=== PATIENT | male | born 1975 | race Caucasian/White ===

== ENCOUNTER 2017-03-14 15:38 | Emergency (ER) | payer OTHER ==
[~2017-03-14] VITALS: Ht 162.6 cm; Wt 72.7 kg
[2017-03-14 17:57] VITALS: BP 121/71
== END 2017-03-14 18:14 | disposition home or self-care (01) ==
LOC: EMS 15:39
DX: F32.9 Major depressive disorder, single episode, unspecified (principal); F17.210 Nicotine dependence, cigarettes, uncomplicated
CPT/HCPCS: 99284

== ENCOUNTER 2017-03-20 09:13 | Inpatient (IN) | payer MEDICAID, OTHER ==
[~2017-03-20] VITALS: Ht 165.1 cm; Wt 69.9 kg
[2017-03-20 10:06] LABS: BASOPHILS # (AUTO) 0.03 K/uL (0.00-0.20); BASOPHILS % (AUTO) 0.4 % (0.0-2.0); EOSINOPHILS # (AUTO) 0.06 K/uL (0.00-0.70); HEMATOCRIT 49.3 % (41-53); HEMOGLOBIN 16.4 g/dL (13.5-17.5); LYMPHOCYTES # (AUTO) 1.5 K/uL (1.0-4.8); LYMPHOCYTES % (AUTO) 16.2 % (22.0-44.0); MEAN CORPUSCULAR HEMOGLOBIN 30.6 pg (26.0-34.0); MEAN CORPUSCULAR HGB CONC 33.2 G/dL (31.0-37.0); MEAN CORPUSCULAR VOLUME 92 fL (80-100); MONOCYTES # (AUTO) 0.7 K/uL (0.1-1.0); MONOCYTES % (AUTO) 7.5 % (2.0-9.0); NEUTROPHILS # (AUTO) 7.2 K/uL (1.8-7.7); NEUTROPHILS % (AUTO) 75.4 % (40.0-70.0); PLATELET COUNT (AUTO) 271 K/uL (150-450); RED BLOOD CELL COUNT(AUTO) 5.35 MIL/uL (4.50-5.90); RED CELL DISTRIBUTION WIDTH 12.9 % (11.5-14.5)
[2017-03-20 10:20] LABS: ANION GAP 6 mmol/L (8-16); CALCIUM, TOTAL 8.8 mg/dL (8.8-10.5); CARBON DIOXIDE 31 mmol/L (22-29); CHLORIDE 100 mmol/L (98-107); CREATININE 0.96 mg/dL (0.60-1.30); GLOMERULAR FILTR. RATE CALC > 60 mL/min (>60); GLUCOSE,RANDOM 91 mg/dL (70-110); POTASSIUM 4.2 mmol/L (3.5-5.1); SODIUM SERUM 137 mmol/L (136-145); UREA NITROGEN, BLOOD 15 mg/dL (7-18)
[2017-03-20 10:24] LABS: ALANINE AMINOTRANSFERASE 40 U/L (12-78); ALBUMIN 3.9 g/dL (3.4-5.0); ALKALINE PHOSPHATASE 115 U/L (46-116); ASPARTATE AMINOTRANSFERASE 17 U/L (15-37); BILIRUBIN,TOTAL 0.3 mg/dL (0.1-1.0); TOTAL PROTEIN, SERUM 7.3 g/dL (6.4-8.2)
[2017-03-20 10:46] LABS: AMPHET/METH SCREEN,URINE NEGATIVE (NEGATIVE); BARBITURATE SCREEN, URINE NEGATIVE (NEGATIVE); BENZODIAZEPINES SCREEN,URINE NEGATIVE (NEGATIVE); CANNABINOID SCREEN,URINE NEGATIVE (NEGATIVE); COCAINE SCREEN,URINE NEGATIVE (NEGATIVE); METHADONE SCREEN, URINE NEGATIVE (NEGATIVE); OPIATE SCREEN,URINE NEGATIVE (NEGATIVE); PHENCYCLIDINE SCREEN,URINE NEGATIVE (NEGATIVE)
[2017-03-20] MEDS ORDERED: LORazepam 2 MG TABLET PO ONE (13:30)
[2017-03-20] MEDS ORDERED: ZOLPIDEM TARTRATE 10 MG TABLET PO PRN (14:00)
[2017-03-20] MEDS ORDERED: MAGNESIUM HYDROXIDE SUSPENSION 30 ML UDCUP PO PRN (14:00)
[2017-03-20] MEDS ORDERED: GuaiFENesin/D-METHORPHAN [SUGAR-FREE] 200-20MG/10 ML SYRUP UDCUP PO PRN (14:00)
[2017-03-20] MEDS ORDERED: TUBERCULIN, PURIFIED PROTEIN DERIVATIVE 5 TU/0.1 ML SYG ID ONE (14:00)
[2017-03-20] MEDS ORDERED: LOPERAMIDE HCL 2 MG CAPSULE PO PRN (14:00)
[2017-03-20] MEDS ORDERED: PROMETHAZINE HCL 25 MG TABLET PO PRN (14:00)
[2017-03-20] MEDS ORDERED: ACETAMINOPHEN 325 MG TABLET PO PRN (14:00)
[2017-03-20] MEDS ORDERED: LORazepam 2 MG TABLET PO PRN (14:00)
[2017-03-20] MEDS ORDERED: QUEtiapine FUMARATE 100 MG TABLET PO PRN (14:00)
[2017-03-20] MEDS ORDERED: HydrOXYzine PAMOATE 50 MG CAPSULE PO PRN (14:00)
[2017-03-20] MEDS ORDERED: MAG HYDROX/AL HYDROX/SIMETH ES 30 ML SUSPENSION UDCUP PO PRN (14:00)
[2017-03-20 19:35] VITALS: BP 139/81
[2017-03-20] MEDS: THIAMINE HCL 100 MG TABLET PO SCH (19:58)
[2017-03-20] MEDS ORDERED: PNEUMOCOCCAL VACCINE POLYVALENT 0.5 ML VIAL [PPSV23] IM ONE (20:30)
[2017-03-21 05:30] VITALS: BP 136/80
[2017-03-21 08:40] LABS: HEMOGLOBIN A1C 5.5 % (4.5-6.2)
[2017-03-21 09:02] VITALS: BP 127/79
[2017-03-21] MEDS: MULTIVITAMINS WITH MINERALS, THERAPEUTIC TABLET PO SCH (09:05)
[2017-03-21] MEDS: FOLIC ACID 1 MG TABLET PO SCH (09:05)
[2017-03-21] MEDS: NALTREXONE HCL 50 MG TABLET PO SCH (09:06)
[2017-03-21] MEDS: DULoxetine HCL 20 MG CAPSULE PO SCH (09:06)
[2017-03-21] MEDS: THIAMINE HCL 100 MG TABLET PO SCH ×2 (09:06→16:33)
[2017-03-21 09:08] LABS: BASOPHILS # (AUTO) 0.03 K/uL (0.00-0.20); BASOPHILS % (AUTO) 0.4 % (0.0-2.0); EOSINOPHILS # (AUTO) 0.05 K/uL (0.00-0.70); EOSINOPHILS % (AUTO) 0.68 % (1.0-6.0); HEMOGLOBIN 15.7 g/dL (13.5-17.5); LYMPHOCYTES # (AUTO) 1.4 K/uL (1.0-4.8); MEAN CORPUSCULAR HEMOGLOBIN 30.7 pg (26.0-34.0); MEAN CORPUSCULAR HGB CONC 33.4 G/dL (31.0-37.0); MEAN CORPUSCULAR VOLUME 92 fL (80-100); MONOCYTES # (AUTO) 0.6 K/uL (0.1-1.0); MONOCYTES % (AUTO) 7.4 % (2.0-9.0); NEUTROPHILS # (AUTO) 5.5 K/uL (1.8-7.7); NEUTROPHILS % (AUTO) 73.5 % (40.0-70.0); PLATELET COUNT (AUTO) 263 K/uL (150-450); RED BLOOD CELL COUNT(AUTO) 5.11 MIL/uL (4.50-5.90); RED CELL DISTRIBUTION WIDTH 12.7 % (11.5-14.5)
[2017-03-21 09:47] LABS: ALANINE AMINOTRANSFERASE 40 U/L (12-78); ALBUMIN 3.5 g/dL (3.4-5.0); ALKALINE PHOSPHATASE 101 U/L (46-116); ANION GAP 8 mmol/L (8-16); ASPARTATE AMINOTRANSFERASE 16 U/L (15-37); BILIRUBIN,TOTAL 0.3 mg/dL (0.1-1.0); CALCIUM, TOTAL 8.6 mg/dL (8.8-10.5); CARBON DIOXIDE 27 mmol/L (22-29); CHLORIDE 102 mmol/L (98-107); CHOL/HDL RATIO 3.8 (4.2-7.3); CHOLESTEROL 168 mg/dL (131-200); CREATININE 0.91 mg/dL (0.60-1.30); FREE T4 (FREE THYROXINE) 0.82 ng/dL (0.76-1.46); GLOMERULAR FILTR. RATE CALC > 60 mL/min (>60); GLUCOSE,RANDOM 97 mg/dL (70-110); HDL CHOLESTEROL 44 mg/dL (40-60); LDL CHOL (CALC.) 95 mg/dL (0-130); POTASSIUM 4.3 mmol/L (3.5-5.1); SODIUM SERUM 137 mmol/L (136-145); THYROID STIMULATING HORMONE 1.21 uIU/mL (0.36-3.74); TOTAL PROTEIN, SERUM 6.6 g/dL (6.4-8.2); TRIGLYCERIDES 144 mg/dL (15-150); UREA NITROGEN, BLOOD 22 mg/dL (7-18)
[2017-03-21] MEDS ORDERED: DULO20CA30 PO (12:53)
[2017-03-21] MEDS ORDERED: NALT50TA PO (12:53)
[2017-03-21 17:57] VITALS: BP 122/80
[2017-03-22 03:09] VITALS: BP 120/81
[2017-03-22] MEDS: NALTREXONE HCL 50 MG TABLET PO SCH (08:05)
[2017-03-22] MEDS: FOLIC ACID 1 MG TABLET PO SCH (08:05)
[2017-03-22] MEDS: THIAMINE HCL 100 MG TABLET PO SCH (08:05)
[2017-03-22] MEDS: MULTIVITAMINS WITH MINERALS, THERAPEUTIC TABLET PO SCH (08:05)
[2017-03-22] MEDS: DULoxetine HCL 20 MG CAPSULE PO SCH (08:05)
[2017-03-22 08:38] VITALS: BP 119/65
[2017-03-22] MEDS ORDERED: DULO20CA30 PO (08:49)
[2017-03-22] MEDS ORDERED: NALT50TA6 PO (08:49)
== END 2017-03-22 09:45 | disposition home or self-care (01) | DRG 751 ==
LOC: EMS 09:15 → EEVIPCON 09:15 → B2S 15:56
PROVIDERS: ADMIT Psychiatry & Neurology Psychiatry; ATTEND Psychiatry & Neurology Psychiatry
DX: F33.9 Major depressive disorder, recurrent, unspecified (principal); R45.851 Suicidal ideations; Z91.14 Patient's other noncompliance with medication regimen; G47.00 Insomnia, unspecified; F17.210 Nicotine dependence, cigarettes, uncomplicated; Z59.9 Problem related to housing and economic circumstances, unspecified; Z65.3 Problems related to other legal circumstances
CPT/HCPCS: 83036; 84439; 84443; 86592; 99285; 99406; G0480

== ENCOUNTER 2018-04-10 20:19 | Inpatient (IN) | payer MEDICAID, OTHER ==
[~2018-04-10] VITALS: Ht 165.1 cm; Wt 82.4 kg
[~2018-04-10 20:19] MED LIST: DULO20CA30 PO; NALT50TA PO; NALT50TA6 PO
[2018-04-10 22:41] LABS: AMPHET/METH SCREEN,URINE NEGATIVE (NEGATIVE); BARBITURATE SCREEN, URINE NEGATIVE (NEGATIVE); BENZODIAZEPINES SCREEN,URINE NEGATIVE (NEGATIVE); CANNABINOID SCREEN,URINE NEGATIVE (NEGATIVE); COCAINE SCREEN,URINE NEGATIVE (NEGATIVE); METHADONE SCREEN, URINE NEGATIVE (NEGATIVE); OPIATE SCREEN,URINE NEGATIVE (NEGATIVE)
[2018-04-10 22:42] LABS: PHENCYCLIDINE SCREEN,URINE NEGATIVE (NEGATIVE)
[2018-04-10 22:52] LABS: EOSINOPHILS % (AUTO) 2.4 % (1.0-6.0); HEMATOCRIT 47.5 % (41-53); HEMOGLOBIN 16.6 g/dL (13.5-17.5); LYMPHOCYTES # (AUTO) 1.8 K/uL (1.0-4.8); LYMPHOCYTES % (AUTO) 27.2 % (22.0-44.0); MEAN CORPUSCULAR HEMOGLOBIN 31.2 pg (26.0-34.0); MEAN CORPUSCULAR HGB CONC 34.8 G/dL (31.0-37.0); MEAN CORPUSCULAR VOLUME 90 fL (80-100); MONOCYTES # (AUTO) 0.5 K/uL (0.1-1.0); MONOCYTES % (AUTO) 7.5 % (2.0-9.0); NEUTROPHILS % (AUTO) 61.9 % (40.0-70.0); PLATELET COUNT (AUTO) 281 K/uL (150-450); RED BLOOD CELL COUNT(AUTO) 5.31 MIL/uL (4.50-5.90); RED CELL DISTRIBUTION WIDTH 13.9 % (11.5-14.5)
[2018-04-10 23:05] LABS: ANION GAP 10 mmol/L (8-16); CARBON DIOXIDE 25 mmol/L (22-29); CHLORIDE 101 mmol/L (98-107); CREATININE 0.99 mg/dL (0.60-1.30); GLUCOSE,RANDOM 104 mg/dL (70-110); POTASSIUM 3.7 mmol/L (3.5-5.1); SODIUM SERUM 136 mmol/L (136-145); UREA NITROGEN, BLOOD 20 mg/dL (7-18)
[2018-04-10 23:06] LABS: CALCIUM, TOTAL 9.1 mg/dL (8.8-10.5); GLOMERULAR FILTR. RATE CALC > 60 mL/min (>60)
[2018-04-10 23:11] LABS: ALANINE AMINOTRANSFERASE 435 U/L (12-78); ALBUMIN 4.2 g/dL (3.4-5.0); ALKALINE PHOSPHATASE 122 U/L (46-116); ASPARTATE AMINOTRANSFERASE 206 U/L (15-37); BILIRUBIN,TOTAL 0.6 mg/dL (0.1-1.0); TOTAL PROTEIN, SERUM 7.7 g/dL (6.4-8.2)
[2018-04-11] MEDS ORDERED: ZOLPIDEM TARTRATE 10 MG TABLET PO PRN
[2018-04-11] MEDS ORDERED: HALOPERIDOL 5 MG TABLET PO PRN
[2018-04-11] MEDS ORDERED: HALOPERIDOL 5 MG TABLET PO ONE (00:15)
[2018-04-11 00:42] LABS: APPEARANCE,URINE CLOUDY (CLEAR); BILIRUBIN,URINE NEGATIVE (NEGATIVE); GLUCOSE, URINE (UA) NEGATIVE (NEGATIVE); KETONES,URINE NEGATIVE (NEGATIVE); LEUKOCYTE ESTERASE ,URINE SMALL (NEGATIVE); NITRATE,URINE NEGATIVE (NEGATIVE); OCCULT BLOOD,URINE NEGATIVE (NEGATIVE); PROTEIN,URINE TRACE (NEGATIVE); UROBILINOGEN,URINE 0.2 mg/dL (<=1.0)
[2018-04-11 00:49] LABS: BACTERIA,URINE Moderate /HPF (None Seen); MUCUS,URINE Moderate LPF (None Seen); RBC,URINE 0-2 /HPF (0-2); SQUAMOUS EPITHELIAL CELL,UR Few /LPF (None Seen)
[2018-04-11 00:54] LABS: CHOLESTEROL 176 mg/dL (131-200); TRIGLYCERIDES 195 mg/dL (15-150)
[2018-04-11 00:55] LABS: CHOL/HDL RATIO 4.8 (4.2-7.3); HDL CHOLESTEROL 37 mg/dL (40-60); LDL CHOL (CALC.) 100 mg/dL (0-130)
[2018-04-11 02:47] VITALS: BP 140/96
[2018-04-11] MEDS ORDERED: CloNIDine HCL 0.1 MG TABLET PO PRN (07:00)
[2018-04-11] MEDS ORDERED: GuaiFENesin/D-METHORPHAN [SUGAR-FREE] 200-20MG/10 ML SYRUP UDCUP PO PRN (07:00)
[2018-04-11] MEDS ORDERED: DOCUSATE SODIUM 100 MG CAPSULE PO PRN (07:00)
[2018-04-11] MEDS ORDERED: ONDANSETRON HCL 4 MG TABLET PO PRN (07:00)
[2018-04-11] MEDS ORDERED: IBUPROFEN 400 MG TABLET PO PRN (07:00)
[2018-04-11] MEDS ORDERED: MAG HYDROX/AL HYDROX/SIMETH ES 30 ML SUSPENSION UDCUP PO PRN (07:00)
[2018-04-11] MEDS ORDERED: PETROLATUM,WHITE 71 GM JELLY TP PRN (07:00)
[2018-04-11] MEDS ORDERED: MAGNESIUM HYDROXIDE SUSPENSION 30 ML UDCUP PO PRN (07:00)
[2018-04-11] MEDS ORDERED: ACETAMINOPHEN 325 MG TABLET PO PRN (07:00)
[2018-04-11] MEDS ORDERED: ALBUTEROL SULFATE HFA 90 MCG/PUFF 8 GM INHALER IH PRN (07:00)
[2018-04-11] MEDS ORDERED: LOPERAMIDE HCL 2 MG CAPSULE PO PRN (07:00)
[2018-04-11 08:11] VITALS: BP 136/90
[2018-04-11 14:00] VITALS: BP 125/86
[2018-04-11 16:00] VITALS: BP 130/88
[2018-04-11] MEDS: LORazepam 2 MG TABLET PO PRN (16:24)
[2018-04-11] MEDS: OLANZapine 5 MG TABLET PO SCH (20:19)
[2018-04-12 07:01] VITALS: BP 125/78
[2018-04-12 08:07] VITALS: BP 114/67
[2018-04-12] MEDS: OLANZapine 5 MG TABLET PO SCH ×2 (08:46→20:32)
[2018-04-12] MEDS: LORazepam 2 MG TABLET PO PRN ×2 (08:46→16:14)
[2018-04-12 16:00] VITALS: BP 125/86
[2018-04-13 06:32] VITALS: BP 122/71
[2018-04-13] MEDS: LORazepam 2 MG TABLET PO PRN ×2 (08:14→16:50)
[2018-04-13] MEDS: OLANZapine 5 MG TABLET PO SCH ×2 (08:14→20:39)
[2018-04-13 08:47] VITALS: BP 118/70
[2018-04-13 16:10] VITALS: BP 121/76
[2018-04-13] MEDS: CEPHALEXIN MONOHYDRATE 250 MG CAPSULE PO SCH (16:50)
[2018-04-14 06:07] VITALS: BP 123/75
[2018-04-14 08:00] VITALS: BP_SYST 111; BP_SYST 139; BP_DIAS 63; BP_DIAS 86
[2018-04-14] MEDS ORDERED: OLAN5TAB27 PO (08:11)
[2018-04-14] MEDS: CEPHALEXIN MONOHYDRATE 250 MG CAPSULE PO SCH (09:06)
[2018-04-14] MEDS: OLANZapine 5 MG TABLET PO SCH (09:06)
[2018-04-14] MEDS ORDERED: CEPH250 PO (10:07)
[2018-04-14] MEDS ORDERED: OLAN5TAB2 PO (10:07)
== END 2018-04-14 11:55 | disposition home or self-care (01) | DRG 750 ==
LOC: EMS 20:19 → B3A 04-11 00:30 → EMS 04-11 01:30 → B3A 04-11 02:33
DX: F25.1 Schizoaffective disorder, depressive type (principal); R74.0 Nonspecific elevation of levels of transaminase and lactic acid dehydrogenase [LDH]; E78.5 Hyperlipidemia, unspecified; F17.210 Nicotine dependence, cigarettes, uncomplicated; M17.10 Unilateral primary osteoarthritis, unspecified knee; N39.0 Urinary tract infection, site not specified; Z59.0 Homelessness; Z79.899 Other long term (current) drug therapy
CPT/HCPCS: 80074; 87081; 87086; 99406; G0480

== ENCOUNTER 2019-05-10 19:24 | Inpatient (IN) | payer MEDICAID, OTHER ==
[~2019-05-10] VITALS: Ht 165.1 cm; Wt 77.3 kg
[~2019-05-10 19:24] MED LIST changes: +CEPH250 PO; -DULO20CA30 PO; -NALT50TA PO; -NALT50TA6 PO; +OLAN5TAB2 PO; +OLAN5TAB27 PO
[2019-05-10 22:21] LABS: APPEARANCE,URINE CLEAR (CLEAR); BILIRUBIN,URINE NEGATIVE (NEGATIVE); GLUCOSE, URINE (UA) NEGATIVE (NEGATIVE); KETONES,URINE TRACE mg/dL (NEGATIVE); LEUKOCYTE ESTERASE ,URINE TRACE (NEGATIVE); NITRATE,URINE NEGATIVE (NEGATIVE); OCCULT BLOOD,URINE NEGATIVE (NEGATIVE); PH,URINE 5.5 (5.0-8.0); PROTEIN,URINE NEGATIVE (NEGATIVE); UROBILINOGEN,URINE 0.2 mg/dL (<=1.0)
[2019-05-10 22:27] LABS: AMPHET/METH SCREEN,URINE NEGATIVE (NEGATIVE); BARBITURATE SCREEN, URINE NEGATIVE (NEGATIVE); BENZODIAZEPINES SCREEN,URINE NEGATIVE (NEGATIVE); CANNABINOID SCREEN,URINE NEGATIVE (NEGATIVE); COCAINE SCREEN,URINE NEGATIVE (NEGATIVE); METHADONE SCREEN, URINE NEGATIVE (NEGATIVE); OPIATE SCREEN,URINE NEGATIVE (NEGATIVE)
[2019-05-10 22:31] LABS: PHENCYCLIDINE SCREEN,URINE NEGATIVE (NEGATIVE)
[2019-05-10 22:33] LABS: BACTERIA,URINE None Seen /HPF (None Seen); RBC,URINE None Seen /HPF (0-2); SQUAMOUS EPITHELIAL CELL,UR Rare /LPF (None Seen); WBC,URINE 0-2 /HPF (0-5)
[2019-05-10 22:36] LABS: EOSINOPHILS % (AUTO) 1.3 % (1.0-6.0); HEMATOCRIT 51.4 % (41-53); HEMOGLOBIN 17.6 g/dL (13.5-17.5); LYMPHOCYTES # (AUTO) 1.6 K/uL (1.0-4.8); LYMPHOCYTES % (AUTO) 24.9 % (22.0-44.0); MEAN CORPUSCULAR HEMOGLOBIN 32.3 pg (26.0-34.0); MEAN CORPUSCULAR HGB CONC 34.2 G/dL (31.0-37.0); MEAN CORPUSCULAR VOLUME 94 fL (80-100); MONOCYTES # (AUTO) 0.5 K/uL (0.1-1.0); MONOCYTES % (AUTO) 8.4 % (2.0-9.0); NEUTROPHILS # (AUTO) 4.2 K/uL (1.8-7.7); NEUTROPHILS % (AUTO) 64.4 % (40.0-70.0); PLATELET COUNT (AUTO) 238 K/uL (150-450); RED BLOOD CELL COUNT(AUTO) 5.45 MIL/uL (4.50-5.90); RED CELL DISTRIBUTION WIDTH 13.7 % (11.5-14.5)
[2019-05-10 22:50] LABS: ANION GAP 5 mmol/L (8-16); CALCIUM, TOTAL 9.1 mg/dL (8.8-10.5); CARBON DIOXIDE 30 mmol/L (22-29); CHLORIDE 105 mmol/L (98-107); CREATININE 1.26 mg/dL (0.60-1.30); GLOMERULAR FILTR. RATE CALC > 60 mL/min (>60); GLUCOSE,RANDOM 138 mg/dL (70-110); POTASSIUM 4.2 mmol/L (3.5-5.1); SODIUM SERUM 140 mmol/L (136-145); UREA NITROGEN, BLOOD 14 mg/dL (7-18)
[2019-05-10 22:58] LABS: ALANINE AMINOTRANSFERASE 33 U/L (12-78); ALBUMIN 3.7 g/dL (3.4-5.0); ALKALINE PHOSPHATASE 122 U/L (46-116); ASPARTATE AMINOTRANSFERASE 23 U/L (15-37); BILIRUBIN,TOTAL 0.3 mg/dL (0.1-1.0)
[2019-05-11 03:12] VITALS: BP 121/78
[2019-05-11] MEDS ORDERED: INFLUENZA VIRUS VACCINE QVS 2019-20 (3YR+)/PF 60 MCG/0.5 ML SYRINGE IM ONE (04:30)
[2019-05-11 08:30] VITALS: BP 126/76
[2019-05-11] MEDS: LORazepam 2 MG TABLET PO PRN (08:45)
[2019-05-11] MEDS: OLANZapine 5 MG RAPDIS TABLET PO PRN (08:50)
[2019-05-11 09:03] LABS: CHOL/HDL RATIO 3.8 (4.2-7.3)
[2019-05-11] MEDS: OLANZapine 5 MG TABLET PO SCH ×2 (12:46→20:28)
[2019-05-11] MEDS: SERTRALINE HCL 50 MG TABLET PO SCH (12:46)
[2019-05-11] MEDS ORDERED: ALBUTEROL SULFATE HFA 90 MCG/PUFF 8 GM INHALER IH PRN (14:30)
[2019-05-11] MEDS ORDERED: PETROLATUM,WHITE 28 GM JELLY TP PRN (14:30)
[2019-05-11] MEDS ORDERED: NICOTINE 14 MG/24 HOUR PATCH TD PRN (14:30)
[2019-05-11] MEDS ORDERED: GuaiFENesin/D-METHORPHAN [SUGAR-FREE] 200-20MG/10 ML SYRUP UDCUP PO PRN (14:30)
[2019-05-11] MEDS ORDERED: MAG HYDROX/AL HYDROX/SIMETH ES 30 ML SUSPENSION UDCUP PO PRN (14:30)
[2019-05-11] MEDS ORDERED: CloNIDine HCL 0.1 MG TABLET PO PRN (14:30)
[2019-05-11] MEDS ORDERED: ONDANSETRON HCL 4 MG TABLET PO PRN (14:30)
[2019-05-11] MEDS ORDERED: LOPERAMIDE HCL 2 MG CAPSULE PO PRN (14:30)
[2019-05-11] MEDS ORDERED: DOCUSATE SODIUM 100 MG CAPSULE PO PRN (14:30)
[2019-05-11] MEDS ORDERED: MAGNESIUM HYDROXIDE SUSPENSION 30 ML UDCUP PO PRN (14:30)
[2019-05-11 16:45] VITALS: BP 103/68
[2019-05-12] MEDS: OLANZapine 5 MG TABLET PO SCH ×2 (08:08→20:17)
[2019-05-12] MEDS: SERTRALINE HCL 50 MG TABLET PO SCH (08:08)
[2019-05-12] MEDS: ACETAMINOPHEN 325 MG TABLET PO PRN (08:08)
[2019-05-12 08:33] VITALS: BP 119/74
[2019-05-12 16:54] VITALS: BP 114/5
[2019-05-12] MEDS: LORazepam 2 MG TABLET PO PRN (18:13)
[2019-05-12] MEDS: OLANZapine 5 MG RAPDIS TABLET PO PRN (18:13)
[2019-05-13] MEDS: SERTRALINE HCL 50 MG TABLET PO SCH (08:02)
[2019-05-13] MEDS: OLANZapine 5 MG TABLET PO SCH ×2 (08:02→20:03)
[2019-05-13 09:29] VITALS: BP 160/92
[2019-05-13] MEDS: LORazepam 2 MG TABLET PO PRN (16:20)
[2019-05-13] MEDS: OLANZapine 5 MG RAPDIS TABLET PO PRN (16:21)
[2019-05-13 16:33] VITALS: BP 105/70
[2019-05-14] MEDS: OLANZapine 5 MG TABLET PO SCH ×2 (08:04→20:26)
[2019-05-14] MEDS: SERTRALINE HCL 50 MG TABLET PO SCH (08:04)
[2019-05-14] MEDS: LORazepam 2 MG TABLET PO PRN ×2 (08:27→16:53)
[2019-05-14 08:40] VITALS: BP 113/81
[2019-05-14 16:35] VITALS: BP 120/69
[2019-05-14] MEDS: IBUPROFEN 400 MG TABLET PO PRN (16:35)
[2019-05-15] MEDS: LORazepam 2 MG TABLET PO PRN ×2 (09:07→16:00)
[2019-05-15] MEDS: SERTRALINE HCL 50 MG TABLET PO SCH (09:08)
[2019-05-15] MEDS: OLANZapine 5 MG TABLET PO SCH ×2 (09:08→20:39)
[2019-05-15 09:39] VITALS: BP 148/76
[2019-05-15 16:39] VITALS: BP 116/66
[2019-05-16 05:22] VITALS: BP 125/80
[2019-05-16] MEDS: LORazepam 2 MG TABLET PO PRN (05:24)
[2019-05-16] MEDS: OLANZapine 5 MG RAPDIS TABLET PO PRN (07:06)
[2019-05-16] MEDS: OLANZapine 5 MG TABLET PO SCH ×2 (09:20→20:45)
[2019-05-16] MEDS: SERTRALINE HCL 50 MG TABLET PO SCH (09:20)
[2019-05-16] MEDS ORDERED: HALOPERIDOL LACTATE 5 MG/ML VIAL IM ONE (09:45)
[2019-05-16] MEDS ORDERED: DiphenhydrAMINE HCL 50 MG/ML VIAL IM ONE (09:45)
[2019-05-16] MEDS ORDERED: LORazepam 2 MG/ML VIAL IM ONE (09:45)
[2019-05-16 10:43] VITALS: BP 141/62
[2019-05-16 21:25] VITALS: BP 127/71
[2019-05-17 04:53] VITALS: BP 129/75
[2019-05-17] MEDS: LORazepam 2 MG TABLET PO PRN ×2 (07:03→16:13)
[2019-05-17 08:55] VITALS: BP 135/80
[2019-05-17] MEDS: SERTRALINE HCL 50 MG TABLET PO SCH (09:12)
[2019-05-17] MEDS: OLANZapine 5 MG TABLET PO SCH ×2 (09:12→20:56)
[2019-05-17] MEDS: OLANZapine 5 MG RAPDIS TABLET PO PRN (16:27)
[2019-05-17 16:52] VITALS: BP 124/71
[2019-05-18 05:29] VITALS: BP 147/96
[2019-05-18] MEDS: LORazepam 2 MG TABLET PO PRN (06:27)
[2019-05-18] MEDS: SERTRALINE HCL 50 MG TABLET PO SCH (08:06)
[2019-05-18] MEDS: OLANZapine 5 MG TABLET PO SCH ×2 (08:06→20:50)
[2019-05-18 08:39] VITALS: BP 134/77
[2019-05-18 16:24] VITALS: BP 162/81
[2019-05-19 03:47] VITALS: BP 121/71
[2019-05-19] MEDS: LORazepam 2 MG TABLET PO PRN (06:51)
[2019-05-19 08:00] VITALS: BP 125/85
[2019-05-19] MEDS: OLANZapine 5 MG TABLET PO SCH ×2 (08:59→20:16)
[2019-05-19] MEDS: SERTRALINE HCL 50 MG TABLET PO SCH (08:59)
[2019-05-19 16:00] VITALS: BP 129/75
[2019-05-19] MEDS: IBUPROFEN 400 MG TABLET PO PRN (16:26)
[2019-05-20 05:10] VITALS: BP 112/72
[2019-05-20] MEDS: ACETAMINOPHEN 325 MG TABLET PO PRN (05:14)
[2019-05-20 08:00] VITALS: BP 116/68
[2019-05-20] MEDS: OLANZapine 5 MG TABLET PO SCH (09:23)
[2019-05-20] MEDS: SERTRALINE HCL 50 MG TABLET PO SCH (09:23)
[2019-05-20 18:37] VITALS: BP 125/85
[2019-05-20] MEDS: IBUPROFEN 400 MG TABLET PO PRN (18:37)
[2019-05-20 19:01] VITALS: BP 125/85
[2019-05-20] MEDS: OLANZapine 10 MG TABLET PO SCH (20:38)
[2019-05-21 05:54] VITALS: BP 109/54
[2019-05-21] MEDS: ACETAMINOPHEN 325 MG TABLET PO PRN (05:55)
[2019-05-21 08:30] VITALS: BP 116/70
[2019-05-21] MEDS: OLANZapine 10 MG TABLET PO SCH ×2 (09:27→20:38)
[2019-05-21] MEDS: SERTRALINE HCL 50 MG TABLET PO SCH (09:27)
[2019-05-21] MEDS: LORazepam 2 MG TABLET PO PRN (16:07)
[2019-05-21 23:03] VITALS: BP 117/73
[2019-05-22 09:14] VITALS: BP 113/70
[2019-05-22] MEDS: OLANZapine 10 MG TABLET PO SCH ×2 (09:36→20:06)
[2019-05-22] MEDS: SERTRALINE HCL 50 MG TABLET PO SCH (09:36)
[2019-05-22 16:50] VITALS: BP 120/73
[2019-05-23 03:49] VITALS: BP 110/81
[2019-05-23 08:00] VITALS: BP 111/77
[2019-05-23 08:38] VITALS: BP 111/77
[2019-05-23] MEDS: SERTRALINE HCL 50 MG TABLET PO SCH (08:38)
[2019-05-23] MEDS: OLANZapine 10 MG TABLET PO SCH ×2 (08:38→20:23)
[2019-05-23] MEDS: IBUPROFEN 400 MG TABLET PO PRN ×2 (08:39→17:17)
[2019-05-23] MEDS: LORazepam 2 MG TABLET PO PRN (12:43)
[2019-05-23 16:00] VITALS: BP 110/61
[2019-05-24 05:50] VITALS: BP 120/80
[2019-05-24] MEDS: ACETAMINOPHEN 325 MG TABLET PO PRN (05:52)
[2019-05-24 09:05] VITALS: BP 113/67
[2019-05-24] MEDS: SERTRALINE HCL 50 MG TABLET PO SCH (09:17)
[2019-05-24] MEDS: OLANZapine 10 MG TABLET PO SCH ×2 (09:17→21:02)
[2019-05-24 16:00] VITALS: BP 136/80
[2019-05-24] MEDS: LORazepam 2 MG TABLET PO PRN (16:30)
[2019-05-24] MEDS: IBUPROFEN 400 MG TABLET PO PRN (16:30)
[2019-05-24 16:55] VITALS: BP 132/78
[2019-05-25 05:24] VITALS: BP 135/82
[2019-05-25] MEDS: OLANZapine 5 MG RAPDIS TABLET PO PRN (07:16)
[2019-05-25] MEDS: OLANZapine 10 MG TABLET PO SCH ×2 (09:10→20:30)
[2019-05-25] MEDS: SERTRALINE HCL 50 MG TABLET PO SCH (09:10)
[2019-05-25 09:36] VITALS: BP 112/66
[2019-05-25] MEDS: ACETAMINOPHEN 325 MG TABLET PO PRN (11:32)
[2019-05-25 17:00] VITALS: BP 127/79
[2019-05-25] MEDS: IBUPROFEN 400 MG TABLET PO PRN (17:00)
[2019-05-25] MEDS: LORazepam 2 MG TABLET PO PRN (18:23)
[2019-05-26] MEDS: OLANZapine 10 MG TABLET PO SCH ×2 (08:43→21:21)
[2019-05-26] MEDS: SERTRALINE HCL 50 MG TABLET PO SCH (08:43)
[2019-05-26 09:05] VITALS: BP 112/67
[2019-05-26 15:51] VITALS: BP 128/81
[2019-05-26] MEDS: IBUPROFEN 400 MG TABLET PO PRN (15:51)
[2019-05-26] MEDS: OLANZapine 5 MG RAPDIS TABLET PO PRN (16:40)
[2019-05-26] MEDS: LORazepam 2 MG TABLET PO PRN (16:40)
[2019-05-26 17:15] VITALS: BP 128/81
[2019-05-27 08:53] VITALS: BP 106/79
[2019-05-27] MEDS: SERTRALINE HCL 50 MG TABLET PO SCH (09:03)
[2019-05-27] MEDS: OLANZapine 10 MG TABLET PO SCH ×2 (09:03→21:02)
[2019-05-27] MEDS: OLANZapine 5 MG RAPDIS TABLET PO PRN (12:19)
[2019-05-27 12:28] VITALS: BP 124/83
[2019-05-27] MEDS: IBUPROFEN 400 MG TABLET PO PRN (12:28)
[2019-05-27] MEDS: LORazepam 2 MG TABLET PO PRN (15:23)
[2019-05-27 18:21] VITALS: BP 119/74
[2019-05-28] MEDS: OLANZapine 10 MG TABLET PO SCH ×2 (08:10→20:41)
[2019-05-28] MEDS: SERTRALINE HCL 50 MG TABLET PO SCH (08:10)
[2019-05-28 09:52] VITALS: BP 123/80
[2019-05-28] MEDS: ARIPiprazole 10 MG TABLET PO SCH (10:44)
[2019-05-28] MEDS: IBUPROFEN 400 MG TABLET PO PRN (16:24)
[2019-05-28 16:41] VITALS: BP 127/79
[2019-05-29 00:35] VITALS: BP 110/61
[2019-05-29] MEDS: IBUPROFEN 400 MG TABLET PO PRN ×2 (00:39→17:42)
[2019-05-29 08:17] VITALS: BP 120/70
[2019-05-29] MEDS: ACETAMINOPHEN 325 MG TABLET PO PRN (08:22)
[2019-05-29] MEDS: OLANZapine 10 MG TABLET PO SCH ×2 (09:13→20:12)
[2019-05-29] MEDS: ARIPiprazole 10 MG TABLET PO SCH (09:13)
[2019-05-29] MEDS: SERTRALINE HCL 50 MG TABLET PO SCH (09:13)
[2019-05-29 17:37] VITALS: BP 119/70
[2019-05-30] MEDS: OLANZapine 10 MG TABLET PO SCH ×2 (08:46→20:19)
[2019-05-30] MEDS: ARIPiprazole 10 MG TABLET PO SCH (08:46)
[2019-05-30] MEDS: SERTRALINE HCL 50 MG TABLET PO SCH ×2 (08:46→16:30)
[2019-05-30 09:56] VITALS: BP 142/99
[2019-05-30 17:25] VITALS: BP 130/70
[2019-05-31] MEDS: OLANZapine 10 MG TABLET PO SCH ×2 (08:54→20:23)
[2019-05-31] MEDS: SERTRALINE HCL 50 MG TABLET PO SCH ×2 (08:54→16:06)
[2019-05-31] MEDS: ARIPiprazole 10 MG TABLET PO SCH (08:55)
[2019-05-31 10:57] VITALS: BP 115/73
[2019-05-31] MEDS: IBUPROFEN 400 MG TABLET PO PRN (15:03)
[2019-05-31 16:04] VITALS: BP 135/81
[2019-06-01 08:00] VITALS: BP 128/80
[2019-06-01] MEDS: SERTRALINE HCL 50 MG TABLET PO SCH ×2 (09:03→17:10)
[2019-06-01] MEDS: ARIPiprazole 10 MG TABLET PO SCH (09:03)
[2019-06-01] MEDS: OLANZapine 10 MG TABLET PO SCH ×2 (09:03→20:19)
[2019-06-01] MEDS: IBUPROFEN 400 MG TABLET PO PRN (14:03)
[2019-06-01 17:06] VITALS: BP 124/74
[2019-06-01] MEDS: ZOLPIDEM TARTRATE 10 MG TABLET PO PRN (20:50)
[2019-06-02 08:00] VITALS: BP 127/85
[2019-06-02] MEDS: SERTRALINE HCL 50 MG TABLET PO SCH ×2 (08:33→16:30)
[2019-06-02] MEDS: ARIPiprazole 10 MG TABLET PO SCH (08:33)
[2019-06-02] MEDS: OLANZapine 10 MG TABLET PO SCH ×2 (08:33→20:13)
[2019-06-02] MEDS: OLANZapine 5 MG RAPDIS TABLET PO PRN ×2 (08:46→17:07)
[2019-06-02] MEDS: LORazepam 2 MG TABLET PO PRN ×2 (08:46→17:07)
[2019-06-02 16:28] VITALS: BP 121/81
[2019-06-02] MEDS: ZOLPIDEM TARTRATE 10 MG TABLET PO PRN (20:54)
[2019-06-03] MEDS: SERTRALINE HCL 50 MG TABLET PO SCH ×2 (08:27→16:12)
[2019-06-03] MEDS: OLANZapine 10 MG TABLET PO SCH ×2 (08:28→20:08)
[2019-06-03] MEDS: ARIPiprazole 10 MG TABLET PO SCH (08:28)
[2019-06-03] MEDS: OLANZapine 5 MG RAPDIS TABLET PO PRN (08:29)
[2019-06-03] MEDS: LORazepam 2 MG TABLET PO PRN (08:29)
[2019-06-03 08:30] VITALS: BP 159/86
[2019-06-03] MEDS: HYPROMELLOSE 0.5% 15 ML OPHTHALMIC SOLUTION OU PRN (15:42)
[2019-06-03 16:27] VITALS: BP 135/89
[2019-06-04] MEDS: OLANZapine 5 MG RAPDIS TABLET PO PRN ×2 (06:20→13:48)
[2019-06-04] MEDS: HYPROMELLOSE 0.5% 15 ML OPHTHALMIC SOLUTION OU PRN (06:21)
[2019-06-04 09:09] VITALS: BP 143/88
[2019-06-04] MEDS: SERTRALINE HCL 50 MG TABLET PO SCH ×2 (09:39→16:36)
[2019-06-04] MEDS: OLANZapine 10 MG TABLET PO SCH ×2 (09:39→20:56)
[2019-06-04] MEDS: ARIPiprazole 10 MG TABLET PO SCH (09:39)
[2019-06-04] MEDS: LORazepam 2 MG TABLET PO PRN (13:47)
[2019-06-04 16:30] VITALS: BP 135/81
[2019-06-05] MEDS: SERTRALINE HCL 50 MG TABLET PO SCH ×2 (08:04→16:22)
[2019-06-05] MEDS: ARIPiprazole 10 MG TABLET PO SCH (08:04)
[2019-06-05] MEDS: OLANZapine 10 MG TABLET PO SCH ×2 (08:04→20:47)
[2019-06-05] MEDS: HYPROMELLOSE 0.5% 15 ML OPHTHALMIC SOLUTION OU PRN (08:07)
[2019-06-05 09:09] VITALS: BP 139/82
[2019-06-05 15:15] VITALS: BP 167/77
[2019-06-05 15:35] LABS: GLUCOMETER DEV NAME(LOC) 3E.C; GLUCOSE,POINT OF CARE 194 MG/DL (70-110)
[2019-06-05 16:19] LABS: APPEARANCE,URINE CLEAR (CLEAR); BILIRUBIN,URINE NEGATIVE (NEGATIVE); GLUCOSE, URINE (UA) NEGATIVE (NEGATIVE); KETONES,URINE NEGATIVE (NEGATIVE); LEUKOCYTE ESTERASE ,URINE NEGATIVE (NEGATIVE); NITRATE,URINE NEGATIVE (NEGATIVE); OCCULT BLOOD,URINE NEGATIVE (NEGATIVE); PROTEIN,URINE NEGATIVE (NEGATIVE); UROBILINOGEN,URINE 0.2 mg/dL (<=1.0)
[2019-06-05 17:07] LABS: BASOPHILS % (AUTO) 0.3 % (0.0-2.0); EOSINOPHILS % (AUTO) 1.8 % (1.0-6.0); HEMOGLOBIN 15.5 g/dL (13.5-17.5); LYMPHOCYTES # (AUTO) 1.6 K/uL (1.0-4.8); LYMPHOCYTES % (AUTO) 23.9 % (22.0-44.0); MEAN CORPUSCULAR HEMOGLOBIN 31.1 pg (26.0-34.0); MEAN CORPUSCULAR HGB CONC 33.7 G/dL (31.0-37.0); MEAN CORPUSCULAR VOLUME 93 fL (80-100); MONOCYTES # (AUTO) 0.6 K/uL (0.1-1.0); MONOCYTES % (AUTO) 9.5 % (2.0-9.0); NEUTROPHILS # (AUTO) 4.3 K/uL (1.8-7.7); NEUTROPHILS % (AUTO) 64.5 % (40.0-70.0); PLATELET COUNT (AUTO) 265 K/uL (150-450); RED BLOOD CELL COUNT(AUTO) 4.97 MIL/uL (4.50-5.90); RED CELL DISTRIBUTION WIDTH 12.6 % (11.5-14.5)
[2019-06-05 17:16] VITALS: BP 133/87
[2019-06-05 17:20] LABS: ANION GAP 9 mmol/L (8-16); CALCIUM, TOTAL 9.2 mg/dL (8.8-10.5); CARBON DIOXIDE 27 mmol/L (22-29); CHLORIDE 104 mmol/L (98-107); CREATININE 0.92 mg/dL (0.60-1.30); GLOMERULAR FILTR. RATE CALC > 60 mL/min (>60); GLUCOSE,RANDOM 113 mg/dL (70-110); SODIUM SERUM 140 mmol/L (136-145); UREA NITROGEN, BLOOD 19 mg/dL (7-18)
[2019-06-06 08:00] VITALS: BP 128/97
[2019-06-06] MEDS: ARIPiprazole 10 MG TABLET PO SCH (08:37)
[2019-06-06] MEDS: SERTRALINE HCL 50 MG TABLET PO SCH ×2 (08:37→16:34)
[2019-06-06] MEDS: OLANZapine 5 MG RAPDIS TABLET PO PRN (08:37)
[2019-06-06] MEDS: LORazepam 2 MG TABLET PO PRN (08:37)
[2019-06-06] MEDS: OLANZapine 10 MG TABLET PO SCH ×2 (08:37→20:33)
[2019-06-06] MEDS: HYPROMELLOSE 0.5% 15 ML OPHTHALMIC SOLUTION OU PRN (13:50)
[2019-06-06 16:32] VITALS: BP 121/81
[2019-06-07 08:00] VITALS: BP 126/72
[2019-06-07] MEDS: HYPROMELLOSE 0.5% 15 ML OPHTHALMIC SOLUTION OU PRN (08:46)
[2019-06-07] MEDS: ARIPiprazole 10 MG TABLET PO SCH (08:47)
[2019-06-07] MEDS: OLANZapine 5 MG RAPDIS TABLET PO PRN (08:48)
[2019-06-07] MEDS: SERTRALINE HCL 50 MG TABLET PO SCH ×2 (08:48→16:37)
[2019-06-07] MEDS: OLANZapine 10 MG TABLET PO SCH ×2 (08:48→20:35)
[2019-06-07] MEDS: LORazepam 2 MG TABLET PO PRN (08:51)
[2019-06-07] MEDS: ZOLPIDEM TARTRATE 10 MG TABLET PO PRN (21:04)
[2019-06-07 22:07] VITALS: BP 130/70
[2019-06-08 04:48] VITALS: BP 132/77
[2019-06-08] MEDS: ACETAMINOPHEN 325 MG TABLET PO PRN (05:20)
[2019-06-08] MEDS: OLANZapine 10 MG TABLET PO SCH ×2 (09:04→20:43)
[2019-06-08] MEDS: SERTRALINE HCL 50 MG TABLET PO SCH ×2 (09:04→16:03)
[2019-06-08] MEDS: ARIPiprazole 10 MG TABLET PO SCH (09:05)
[2019-06-08] MEDS: LORazepam 2 MG TABLET PO PRN ×2 (09:09→17:19)
[2019-06-08 09:23] VITALS: BP 135/68
[2019-06-08] MEDS: HYPROMELLOSE 0.5% 15 ML OPHTHALMIC SOLUTION OU PRN (11:30)
[2019-06-08 17:19] VITALS: BP 122/91
[2019-06-09 05:21] VITALS: BP 149/89
[2019-06-09] MEDS: IBUPROFEN 400 MG TABLET PO PRN ×2 (05:22→16:14)
[2019-06-09 08:59] VITALS: BP 129/82
[2019-06-09] MEDS: SERTRALINE HCL 50 MG TABLET PO SCH (09:09)
[2019-06-09] MEDS: ARIPiprazole 15 MG TABLET PO SCH (09:09)
[2019-06-09] MEDS: OLANZapine 10 MG TABLET PO SCH ×2 (09:09→20:45)
[2019-06-09] MEDS: LORazepam 2 MG TABLET PO PRN ×2 (09:11→20:08)
[2019-06-09] MEDS: DULoxetine HCL 30 MG CAPSULE PO SCH (12:33)
[2019-06-09 16:14] VITALS: BP 120/75
[2019-06-09] MEDS ORDERED: SERTRALINE HCL 50 MG TABLET PO SCH (17:00)
[2019-06-09 17:03] VITALS: BP 113/65
[2019-06-09] MEDS: OLANZapine 5 MG RAPDIS TABLET PO PRN (18:48)
[2019-06-09 20:08] VITALS: BP 132/85
[2019-06-10] MEDS: DULoxetine HCL 30 MG CAPSULE PO SCH (08:06)
[2019-06-10] MEDS: ARIPiprazole 15 MG TABLET PO SCH (08:06)
[2019-06-10] MEDS: SERTRALINE HCL 50 MG TABLET PO SCH (08:07)
[2019-06-10] MEDS: OLANZapine 10 MG TABLET PO SCH ×2 (08:08→20:09)
[2019-06-10] MEDS: LORazepam 2 MG TABLET PO PRN (08:10)
[2019-06-10 10:51] VITALS: BP 128/92
[2019-06-10 17:02] VITALS: BP 129/77
[2019-06-10] MEDS ORDERED: ARIP15TA2 PO (17:15)
[2019-06-10] MEDS ORDERED: SERT50TA12 PO (17:15)
[2019-06-10] MEDS ORDERED: OLAN10TA3 PO (17:15)
[2019-06-10] MEDS ORDERED: DULO30CA2 PO (17:16)
[2019-06-10 18:07] VITALS: BP 129/77
[2019-06-10] MEDS: IBUPROFEN 400 MG TABLET PO PRN (18:07)
[2019-06-11 03:40] VITALS: BP 114/84
[2019-06-11] MEDS: IBUPROFEN 400 MG TABLET PO PRN (03:40)
[2019-06-11] MEDS: DULoxetine HCL 30 MG CAPSULE PO SCH (09:00)
[2019-06-11] MEDS: OLANZapine 10 MG TABLET PO SCH (09:00)
[2019-06-11] MEDS: ARIPiprazole 15 MG TABLET PO SCH (09:00)
[2019-06-11] MEDS: SERTRALINE HCL 50 MG TABLET PO SCH (09:00)
== END 2019-06-11 08:45 | disposition home or self-care (01) | DRG 885 ==
LOC: EMS 19:25 → 3EI 05-11 01:12 → 3EC 05-27 21:40 → 3EI 06-07 21:54
PROVIDERS: ATTEND Psychiatry & Neurology Child & Adolescent Psychiatry
DX: F25.1 Schizoaffective disorder, depressive type (principal); R45.851 Suicidal ideations; F10.10 Alcohol abuse, uncomplicated; M19.90 Unspecified osteoarthritis, unspecified site; F41.0 Panic disorder [episodic paroxysmal anxiety]; F41.9 Anxiety disorder, unspecified; F17.210 Nicotine dependence, cigarettes, uncomplicated
CPT/HCPCS: 70450; 72040; 87081; 90686; 93005; G0480; J1200; J1630; J2060